=== PATIENT | female | born 1990 | race American Indian/Alaskan Native ===

== ENCOUNTER 2021-04-01 10:04 | Emergency (ER) | payer OTHER ==
[2021-04-01 10:18] VITALS: BP 120/67
--- NOTE | 2021-04-01 11:08 | XRay Report ---
RIGHT FOOT 2 VIEWS INDICATION / CLINICAL INFORMATION: Injury with right foot pain. COMPARISON: None available. FINDINGS: BONES / JOINT(S): There is an acute, minimally displaced transverse fracture involving the base of th e fifth metatarsal. No subluxation. No significant arthritis. SOFT TISSUES: No significant abnormality. ADDITIONAL FINDINGS: None. IMPRESSION: Acute fracture involving the base of the right fifth metatarsal. Signer Name: Tyrone Trevino MD Signed: 04/01/2021 11:04 AM Workstation Name: [id number]
--- NOTE | 2021-04-01 11:19 | Emergency Department Report ---
ED General Adult HPI - General Chief complaint: Extremity Injury, Lower Stated complaint: RT FOOT SWOLLEN Time Seen by Provider: 04/01/21 10:39 Source: patient Mode of arrival: Ambulatory Limitations: No Limitations - History of Present Illness Initial comments: 30-year-old female patient presents to the emergency department with complaints of traumatic right foot pain starting last night. Patient states she was ambulating down stairs in the dark when she accidentally missed 2 steps at the bottom of the stairs. There was no resulting head injury or loss of consciousness. No history of prior injuries to the right foot. Past medical history is unremarkable. Denies hip pain, knee pain, ankle pain, paresthesias, numbness, weakness. Denies all other complaints at this time. - Related Data Previous Rx's Medication Instructions Recorded Last Taken Type Naproxen 500 mg PO BID #20 tablet 04/01/21 Unknown Rx Allergies Allergy/AdvReac Type Severity Reaction Status Date / Time No Known Allergies Allergy Unverified 04/01/21 10:16 ED Review of Systems ROS: Stated complaint: RT FOOT SWOLLEN Other details as noted in HPI Other: CARDIOVASCULAR: Negative for chest pain. PULMONARY: Negative for dyspnea. GASTROINTESTINAL: Negative for abdominal pain. MUSCULOSKELETAL: Positive for right foot pain. NEUROLOGICAL: Negative for headache. INTEGUMENTARY: Negative for ecchymosis. ED Past Medical Hx - Past Medical History Previous Medical History?: No - Surgical History Past Surgical History?: No - Medications Home Medications: Home Medications Medication Instructions Recorded Confirmed Last Taken Type Naproxen 500 mg PO BID #20 tablet 04/01/21 Unknown Rx ED Physical Exam - General Limitations: No Limitations - Other Other exam information: General: Awake, appropriately interactive, no acute distress. Neck: Supple. Full range of motion intact. Cardiovascular: Normal peripheral perfusion. Pulmonary: No respiratory distress. Patient is speaking normally without use of accessory muscles. Skin: No apparent rashes or lesions. Neurological: No facial asymmetry. Speech is clear. Follows commands. Patient is alert and oriented. Musculoskeletal: Tenderness to palpation along the base of the right fifth metatarsal with overlying soft tissue swelling. No malleolar tenderness. No navicular tenderness. No plantar ecchymosis. Distal neurovascular and motor/sensory function intact. Psych: Cooperative. Appropriate mood and affect. ED Course Vital Signs 04/01/21 04/01/21 10:17 12:20 Temperature 99.7 F H Pulse Rate 83 88 Respiratory 18 16 Rate Blood Pressure 120/67 O2 Sat by Pulse 99 100 Oximetry ED Medical Decision Making - Radiology Data [facility] [address] [place] [address] XRay Report Signed Patient: RHIANNON LINDSEY MR#: [id number] 4 : 1990 Acct:[id number] Age/Sex: 30 / F ADM Date: 04/01/21 Loc: ED Attending Dr: Ordering Physician: NELSON PEREZ MD Date of Service: 04/01/21 Procedure(s): XR foot 2V RT Accession Number(s): [id number] cc: NELSON PEREZ MD Fluoro Time In Minutes: RIGHT FOOT 2 VIEWS INDICATION / CLINICAL INFORMATION: Injury with right foot pain. COMPARISON: None available. FINDINGS: BONES / JOINT(S): There is an acute, minimally displaced transverse fracture involving the base of the fifth metatarsal. No subluxation. No significant arthritis. SOFT TISSUES: No significant abnormality. ADDITIONAL FINDINGS: None. IMPRESSION: Acute fracture involving the base of the right fifth metatarsal. Signer Name: Tyrone Trevino MD Signed: 04/01/2021 11:04 AM Workstation Name: [id number] Transcribed By: RT Dictated By: Tyrone Trevino MD Electronically Authenticated By: Tyrone Trevino MD Signed Date/Time: 04/01/21 1104 DD/ 1103 TD/TT: - Medical Decision Making Differential diagnosis including but not limited to: sprain, strain, fracture, contusion, dislocation On re-evaluation, patient remains stable. Repeat neurovascular exam remains intact. X-rays show acute, minimally displaced transverse fracture involving the base of the fifth metatarsal. Patient placed in short leg posterior splint and discharged home with crutches, appropriate analgesics, and referral to orthopedics for close outpatient follow-up. Patient expressed understanding and is agreeable to plan of care. RICE precautions discussed. Strict return precautions provided. Repeat exam is unremarkable and benign. History, exam, diagnostic testing, and current condition do not suggest worrisome pathology to warrant further testing, continued ED treatment, admission, or surgical evaluation at this point. Given the low probability of a significant medical illness, it would be more likely to result in harm than benefit to perform further testing at this stage. Discussed findings, presumptive diagnosis, need for follow-up and specific signs/symptoms that should prompt immediate return to the emergency department. Instructions were explained in detail to the patient in addition to giving written discharge information. Patient expressed understanding and was given the opportunity to ask questions, all of which were satisfactorily answered prior to discharge home. Critical care attestation.: If time is entered above; I have spent that time in minutes in the direct care of this critically ill patient, excluding procedure time. ED Disposition Clinical Impression: Fracture of fifth metatarsal bone of right foot Qualifiers: Encounter type: initial encounter Fracture type: closed Fracture alignment: displaced Qualified Code(s): S92.351A - Displaced fracture of fifth metatarsal bone, right foot, initial encounter for closed fracture Disposition: TO HOME OR SELFCARE Is pt being admited?: No Does the pt Need Aspirin: No Condition: Stable Instructions: Metatarsal Fracture Additional Instructions: Take Tylenol every 4 hours as needed for pain. Take Naprosyn twice daily with food as needed for pain. Keep right foot elevated as often as possible to reduce swelling. Wear splint as directed. Use crutches as needed. Follow-up with Dr. Haley, orthopedics, within 1 week. Call today to schedule an appointment. Bring a copy of today's results with you to your follow-up appointment. Return to the emergency department immediately for new or worsening symptoms. Prescriptions: Naproxen 500 mg PO BID #20 tablet Referrals: TYRONE HALEY MD [Staff Physician] - 3-5 Days Time of Disposition: 11:19
== END 2021-04-01 11:30 | disposition home or self-care (01) ==
LOC: EDBD → ED 10:04
DX: S92.351A Displaced fracture of fifth metatarsal bone, right foot, initial encounter for closed fracture (principal); Z79.899 Other long term (current) drug therapy; X58.XXXA Exposure to other specified factors, initial encounter; Y93.89 Activity, other specified; Y92.89 Other specified places as the place of occurrence of the external cause; Y99.8 Other external cause status